=== PATIENT | female | born 1980 | race Caucasian/White ===

== ENCOUNTER 2016-12-04 23:20 | Emergency (ER) | payer OTHER ==
[~2016-12-04] VITALS: Ht 172.7 cm; Wt 83.9 kg
[2016-12-05] MEDS ORDERED: Ketorolac 30mg Inj IV ONE
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
[2016-12-05] MEDS ORDERED: Tylenol #3 tab (300mg/30mg) ORAL ONE (02:00)
[2016-12-05 03:14] VITALS: BP 137/85
[2016-12-05] MEDS ORDERED: ROBAXIN-750750 MG PO (04:07)
[2016-12-05] MEDS ORDERED: ACETAMINOPHEN-1 EAC1 ORAL (04:07)
[2016-12-05] MEDS ORDERED: IBUPROFEN600 MG ORAL (04:07)
[2016-12-05 04:23] VITALS: BP 137/85
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
--- NOTE | 2016-12-05 09:25 | Diagnostic Imaging Report ---
Indication: Thoracic, back pain. Thoracic spine trauma Technique: Continuous helical transaxial imaging of the thoracic spine was obtained from the lung bases to the pubic symphysis. No IV contrast was administered. Coronal 2-D reformats were also obtained. Study obtained in a Siemens sensation [address] Total Dose length Product (DLP): [address] Dose Index Volume (CTDIvol): 0.25, 0.25, 45.99 mGy Comparison: None Findings: Alignment, configuration of the vertebral bodies and intervertebral discs appear normal. There is no acute fracture identified. Laparoscopic band incidentally noted in the upper stomach. The visualized ribs and costovertebral regions are unremarkable. No obvious paraspinous or paravertebral hematoma or fluid identified. Impression: No acute injury identified. [facility] has communicated the preliminary results to the Emergency Department. Their findings are largely concordant with this report. The CT scanner at [facility] is accredited by the [employer] and the scans are performed using dose optimization techniques as appropriate to a performed exam including Automatic Exposure control.
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
--- NOTE | 2016-12-05 11:20 | Diagnostic Imaging Report ---
Indication: Pain Comparison: None Findings: Two views of the left tibia and fibula were obtained. No acute fracture, malalignment, or periosteal reaction are identified. Soft tissues are unremarkable. Impression: Negative examination of the tibia and fibula
--- NOTE | 2016-12-05 11:20 | Diagnostic Imaging Report ---
Indication: Pain Comparison: None Findings: Two views of the right tibia and fibula were obtained. No acute fracture, malalignment, or periosteal reaction are identified. Soft tissues are unremarkable. Impression: Negative examination of the tibia and fibula
== END 2016-12-05 04:23 | disposition home or self-care (01) ==
LOC: EDBD 23:20 → EMR 23:30
DX: S22.20XA Unspecified fracture of sternum, initial encounter for closed fracture (principal); S30.1XXA Contusion of abdominal wall, initial encounter; S80.812A Abrasion, left lower leg, initial encounter; S80.811A Abrasion, right lower leg, initial encounter; F41.9 Anxiety disorder, unspecified; F32.9 Major depressive disorder, single episode, unspecified; G50.0 Trigeminal neuralgia; Z88.0 Allergy status to penicillin; Z88.2 Allergy status to sulfonamides; V43.52XA Car driver injured in collision with other type car in traffic accident, initial encounter; Y92.410 Unspecified street and highway as the place of occurrence of the external cause
CPT/HCPCS: 71250; 72128; 73590; 81025; 96360; 96361; 96374; 96375; 99284; J1885; J3360